=== PATIENT | male | born 1990 | race Caucasian/White ===

== ENCOUNTER 2020-02-01 18:56 | Emergency (ER) | payer BC, SELFPAY ==
[2020-02-01 19:07] VITALS: BP 127/87; PULSE 78; RESP 18; TEMP 36.7; O2SAT 99
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
[2020-02-01 19:54] LABS: Abs Immature Grans 0.03 k/cumm (0.0-0.09); Absolute Basophil Count 0.02 k/cumm (0.0-0.2); Absolute Lymphocyte Count 1.86 k/cumm (1.2-3.4); Absolute Monocyte Count 0.47 k/cumm (0.11-0.7); Absolute Neutrophil Count 5.96 k/cumm (1.2-6.7); Basophils % 0.2; Eosinophils % 1.2; HCT 41.6 % (40.0-50.0); HGB 14.6 g/dL (13.5-17.5); Immature Grans % 0.4 %; Mean Corp. HGB Concentration 35.1 g/dL (32.0-36.0); Mean Corpuscular Volume 88.3 fL (80-95); Mean Platelet Volume 11.2 fL (8.0-11.0); Monocytes % 5.6; Neutrophils % 70.6; Platelet Count 214 x1000/uL (130-400); RBC 4.71 m/cumm (4.50-6.00); White Blood Cell Count 8.44 k/cumm (4.4-10.8)
[2020-02-01] MEDS: Normal Saline 1,000 ML 1000 ML IV (20:00)
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
[2020-02-01 20:06] LABS: ALT 32 U/L (16-63); AST 28 U/L (15-37); Albumin 4.4 g/dL (3.4-5.0); Alkaline Phosphatase 83 U/L (46-116); Anion Gap 8.3 mmol/L (3-11); BUN 22 mg/dL (7-18); Bilirubin, Total 1.4 mg/dL (0.2-1.0); CO2 29.7 mmol/L (21.0-32.0); CREATININE 1.27 mg/dL (0.70-1.30); Calcium 8.7 mg/dL (8.5-10.1); Chloride 103 mmol/L (98-107); Glucose 111 mg/dL (74-106); Lipase 70 U/L (73-393); Potassium 3.2 mmol/L (3.5-5.1); Sodium 141 mmol/L (136-145); Total Protein 7.3 g/dL (6.4-8.2)
[2020-02-01 20:08] LABS: INR 1.1 (0.9-1.1); PTT Activated 21.7 sec (21.0-31.4); Prothrombin Time 10.7 sec (9.3-11.0)
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
[2020-02-01 21:14] VITALS: BP 125/76; PULSE 72; RESP 16; O2SAT 98
[2020-02-01] MEDS: Ondansetron 4 MG/2 ML VIAL (21:15)
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
[2020-02-01] MEDS: Acetaminophen 500 MG TAB 1000 MG PO (22:30)
[2020-02-01] MEDS: Cephalexin 500 MG CAP PO (22:40)
[2020-02-01 22:41] VITALS: BP 123/63; PULSE 79; RESP 16; O2SAT 98
--- NOTE | 2020-02-01 22:51 | NUR.NOTE ---
Nursing Note: Pt tolerating PO and ambulation without incident.
== END 2020-02-01 23:00 | disposition home or self-care (01) ==
PROVIDERS: Emergency Provider Physician Assistant
DX: S02.40DA Maxillary fracture, left side, initial encounter for closed fracture (principal); S06.9X9A Unspecified intracranial injury with loss of consciousness of unspecified duration, initial encounter; R11.2 Nausea with vomiting, unspecified; S63.601A Unspecified sprain of right thumb, initial encounter; S00.81XA Abrasion of other part of head, initial encounter; S40.212A Abrasion of left shoulder, initial encounter; S80.211A Abrasion, right knee, initial encounter; V18.0XXA Pedal cycle driver injured in noncollision transport accident in nontraffic accident, initial encounter; Y93.55 Activity, bike riding
CPT/HCPCS: 36415; 80053; 83690; 96361; 96374; 99285; 70450; 70486; 71045; 72125; 73130; 85025; 85610; 85730; J2405